=== PATIENT | female | born 1975 | race Caucasian/White ===

== ENCOUNTER 2017-06-07 19:12 | Emergency (ER) | payer MEDICARE, OTHER ==
[2017-06-07 19:31] VITALS: RESP 20; TEMP 97
[2017-06-07] MEDS ORDERED: BACITRACIN 500 U/GM OIN TOP ONE ×2 (19:46→19:48)
[2017-06-07 20:10] VITALS: BP 123/90; PULSE 89; O2SAT 97
== END 2017-06-07 20:06 | disposition home or self-care (01) | DRG 605 ==
LOC: ED 19:12
DX: S50.312A Abrasion of left elbow, initial encounter (principal); W01.0XXA Fall on same level from slipping, tripping and stumbling without subsequent striking against object, initial encounter
CPT/HCPCS: 99282; 99283; A6402; A6446

== ENCOUNTER 2018-02-06 00:10 | Emergency (ER) | payer MEDICARE, OTHER ==
[2018-02-06] MEDS ORDERED: KETOROLAC TROMETHAMINE 30 MG/ML SOL IV ONE (00:21)
[2018-02-06 00:30] LABS: BASOPHILS % (AUTO) 3 % (0-3); EOSINOPHILS % (AUTO) 1 % (0-9); HEMATOCRIT 41 % (35-47); MEAN CORPUSCULAR HGB CONC 32.6 gm/dl (32.0-36.0); MEAN CORPUSCULAR VOLUME 87 fL (81-99); MONOCYTES % (AUTO) 7.9 % (0-12); NEUTROPHILS % (AUTO) 66.1 % (37-80)
[2018-02-06] MEDS ORDERED: SODIUM CHLORIDE 0.9% FLUSH 10 ML SOL IV PRN (00:30)
[2018-02-06] MEDS ORDERED: KETOROLAC TROMETHAMINE 30 MG/ML SOL ONE (00:33)
[2018-02-06 01:16] LABS: ALBUMIN 3.2 gm/dl (3.4-5.0); ALT 30 IU/L (14-63); CALCIUM 8.7 mg/dl (8.5-10.1); GLOM FILT RATE 68 mL/min (>60); SODIUM 139 mMol/L (136-145)
[2018-02-06 01:17] LABS: POTASSIUM 2.7 mMol/L (3.5-5.1)
[2018-02-06] MEDS ORDERED: POTASSIUM CHLORIDE 2 MEQ/ML SOL IV ONE (01:20)
[2018-02-06] MEDS ORDERED: POTASSIUM CHLORIDE 2 MEQ/ML 40 MEQ, LIDOCAINE HCL 1% MDV 2 ML in SODIUM CHLORIDE 0.9% 5... IV ONE (01:20)
[2018-02-06] MEDS ORDERED: POTASSIUM CHLORIDE 10 MEQ TER PO ONE (01:20)
[2018-02-06] MEDS ORDERED: LIDOCAINE HCL 1% MPF SOL ONE (01:21)
[2018-02-06] MEDS ORDERED: SPIRONOLACTONE 25 MG TAB PO ONE (01:25)
[2018-02-06] MEDS ORDERED: POTASSIUM CHLORIDE 10 MEQ TER ONE (01:34)
[2018-02-06] MEDS ORDERED: SPIRONOLACTONE 25 MG TAB ONE (01:36)
[2018-02-06 06:14] VITALS: O2SAT 97
[2018-02-06 06:23] LABS: POTASSIUM 3.7 mMol/L (3.5-5.1)
[2018-02-06 06:39] VITALS: BP 107/78; PULSE 72; RESP 16; TEMP 98.4
== END 2018-02-06 06:57 | disposition home or self-care (01) | DRG 206 ==
LOC: ED 00:10
DX: M94.0 Chondrocostal junction syndrome [Tietze] (principal); E87.6 Hypokalemia
CPT/HCPCS: 71045; 80053; 83735; 84132; 84484; 84703; 85025; 85378; 93005; 96365; 96366; 96374; 99285; J1885; J3480; A9270-GY; J2001

== ENCOUNTER 2018-08-02 21:17 | Emergency (ER) | payer MEDICARE, OTHER ==
[2018-08-02 21:38] VITALS: BP 110/77; PULSE 79; RESP 18; TEMP 98.7; O2SAT 99
== END 2018-08-02 22:03 | disposition home or self-care (01) | DRG 563 ==
LOC: ED 21:17
DX: S63.642A Sprain of metacarpophalangeal joint of left thumb, initial encounter (principal)
CPT/HCPCS: 73140; 99282

== ENCOUNTER 2019-07-09 05:29 | Emergency (ER) | payer MEDICARE, OTHER ==
[2019-07-09 07:17] LABS: ALBUMIN 3.1 gm/dl (3.4-5.0); ALKALINE PHOSPHATASE 89 IU/L (46-116); ALT 17 IU/L (14-63); AST 13 IU/L (15-37); BILIRUBIN,TOTAL 0.3 mg/dl (0.2-1.0); BLOOD UREA NITROGEN 12 mg/dl (7-18); CALCIUM 8.2 mg/dl (8.5-10.1); CARBON DIOXIDE 26.4 mEq/L (21-32); CHLORIDE 106 mMol/L (98-107); CREATININE 0.78 mg/dl (0.60-1.00); GLUCOSE 106 mg/dl (74-106); THYROID STIMULATING HORMONE 4.859 uIU/ml (0.358-3.740); TOTAL PROTEIN 7.1 gm/dl (6.4-8.2); TROP I < 0.017 ng/ml (0.000-0.056)
[2019-07-09 07:19] LABS: BASOPHILS % (AUTO) 1 % (0-3); EOSINOPHILS % (AUTO) 2 % (0-9); HEMATOCRIT 37 % (35-47); HEMOGLOBIN 11.5 gm/dl (12.0-15.5); MEAN CORPUSCULAR HEMOGLOBIN 26.9 pg (27.0-32.0); MEAN CORPUSCULAR HGB CONC 31.1 gm/dl (32.0-36.0); MEAN CORPUSCULAR VOLUME 86 fL (81-99); MONOCYTES % (AUTO) 7.2 % (0-12); NEUTROPHILS % (AUTO) 66.6 % (37-80)
[2019-07-09 07:50] VITALS: RESP 18; TEMP 97.6
[2019-07-09 07:52] LABS: APPEARANCE,URINE Cloudy; BILIRUBIN,URINE NEGATIVE (NEGATIVE); COLOR,URINE Light yellow; GLUCOSE, URINE (UA) NEGATIVE (NEGATIVE); KETONES,URINE NEGATIVE (NEGATIVE); LEUKOCYTE ESTERASE ,URINE TRACE (NEGATIVE); NITRATE,URINE NEGATIVE (NEGATIVE); OCCULT BLOOD,URINE TRACE INTACT (NEG-TRACE); PH,URINE 5.5; UROBILINOGEN,URINE 0.2 (0.2-1.0 EU)
[2019-07-09 07:54] VITALS: BP 112/84; PULSE 70; O2SAT 98
[2019-07-09 08:11] LABS: BACTERIA 2+ (< 1+); CRYSTALS NEGATIVE (0-3 AVE/HPF); EPITHELIAL CELLS 15-25 (SQUAMOUS)
== END 2019-07-09 08:24 | disposition home or self-care (01) | DRG 645 ==
LOC: ED 05:29
DX: E03.9 Hypothyroidism, unspecified (principal); R60.9 Edema, unspecified; R06.02 Shortness of breath; R51 Headache; M79.89 Other specified soft tissue disorders; Z79.899 Other long term (current) drug therapy
CPT/HCPCS: 71045; 80053; 81001; 83880; 84443; 84484; 84703; 85025; 85379; 87088; 93005; 99283; 99284